=== PATIENT | female | born 1990 | race Caucasian/White ===

== ENCOUNTER → 2021-10-01 07:59 | Outpatient (BNVA) | payer MEDICAID, SELFPAY | PROVIDERS: Visit Provider Nurse Practitioner Women's Health | DX: N92.6 Irregular menstruation, unspecified (principal) | CPT/HCPCS: 81025 ==

== ENCOUNTER → 2021-10-11 13:25 | Outpatient (BNVA) | payer MEDICAID, SELFPAY | PROVIDERS: Visit Provider Obstetrics & Gynecology | DX: Z34.90 Encounter for supervision of normal pregnancy, unspecified, unspecified trimester (principal) | CPT/HCPCS: 80307; 81000; 87086 ==

== ENCOUNTER → 2021-10-26 09:11 | Outpatient (BNVA) | payer MEDICAID, SELFPAY | PROVIDERS: Visit Provider Obstetrics & Gynecology | DX: O09.90 Supervision of high risk pregnancy, unspecified, unspecified trimester (principal); Z3A.00 Weeks of gestation of pregnancy not specified | CPT/HCPCS: 80053; 80307; 81000; 82570; 84156; 84443; 85027; 86592; 86762; 86803; 86850; 86900; 87086; 87340; 87491; 87591; 87624; 87806 ==

== ENCOUNTER → 2021-10-27 08:16 | Outpatient (BNVA) | payer MEDICAID, SELFPAY | PROVIDERS: Visit Provider Obstetrics & Gynecology | DX: I10 Essential (primary) hypertension (principal); Z87.59 Personal history of other complications of pregnancy, childbirth and the puerperium | CPT/HCPCS: 84550 ==

== ENCOUNTER 2021-11-10 11:56 | Outpatient (CLI) | payer MEDICAID, SELFPAY ==
--- NOTE | 2021-11-10 12:15 | USCV_ITS ---
Jessica Garcia Age: 31 Gender: F : 1990 Exam Date: 11/10/2021 12:21 Ordering Phys: Mamadou Reid MD Technologist: ANGELA [place] [facility] [place]: Essential hypertension BP: 128 / 84 HR: 76 Rhythm: Sinus Technical Quality: Adequate MEASUREMENTS (Male / Female) Normal Values 2D ECHO LV Diastolic Diameter PLAX 3.5 cm 4.2 - 5.9 / 3.9 - 5.3 cm LV Systolic Diameter PLAX 2.6 cm IVS Diastolic Thickness 1.0 cm 0.6 - 1.0 / 0.6 - 0.9 cm IVS Systolic Thickness 1.5 cm LVPW Diastolic Thickness 1.2 cm 0.6 - 1.0 / 0.6 - 0.9 cm LVPW Systolic Thickness 1.6 cm RV Chamber Size 1.8 cm LVOT Diameter 2.0 cm LV Ejection Fraction 2D Teich 53.7 % LV Ejection Fraction MOD 2C 71.7 % LV Ejection Fraction 2C AL 73.1 % LA Diameter 2.4 cm LA Width 3.4 cm LA Height 3.5 cm RA Width 2.2 cm RA Height 3.1 cm Aorta at Sinotubular Diameter 2.5 cm IVC Diameter 2.1 cm M-MODE Aortic Annulus Diameter 2.6 cm LA Ao Ratio MM 0.8 MV E Point Septal Separation 0.3 cm DOPPLER AV Peak Velocity 124.0 cm/s LVOT Peak Velocity 97.0 cm/s AV Area Cont Eq vti 2.5 cm squared AV Area Cont Eq pk 2.6 cm squared MV Area PHT 9.2 cm squared Mitral E to A Ratio 1.5 MV E' Velocity 62.0 cm/s Mitral E to MV E' Ratio 8.1 Mitral E to LV E' Lateral Ratio 7.8 Mitral E to LV E' Septal Ratio 8.3 TR Peak Velocity 145.0 cm/s TR Peak Gradient 8.4 mmHg Right Atrial Pressure 3.0 mmHg Pulmonary Artery Systolic Pressu 11.4 mmHg PV Peak Velocity 118.0 cm/s RV Acceleration Time 0.2 s RV Ejection Time 0.3 s RV AcT/ET 0.6 FINDINGS Left Ventricle Normal left ventricular size. LV systolic function is normal with EF of 55-60%. No regional wall motion abnormalities. Diastolic function is normal Right Ventricle The right ventricle is normal in size and function. Right Atrium The right atrium is normal in size. Left Atrium The left atrium is normal in size. Mitral Valve Mild mitral annular calcification without significant stenosis or prolapse. There is trace mitral regurgitation. Aortic Valve Structurally normal aortic valve without significant sclerosis or stenosis. There is no aortic regurgitation. Tricuspid Valve Structurally normal tricuspid valve without significant stenosis. Mild tricuspid regurgitation. Insufficient TR jet to calculate RVSP. Pulmonic Valve Not well visualized. Mild pulmonic regurgitation Pericardium Normal pericardium without effusion. Aorta Normal ascending aorta dimension. IVC CONCLUSIONS LV systolic function is normal with EF of 55-60% Diastolic function is normal Trace mitral regurgitation Mild tricuspid regurgitation Mild pulmonic regurgitation No comparison studies are available Richard Bertrand MD (Electronically Signed) Final Date: 20 Nov 2021 22:36 S
--- NOTE | 2021-11-10 13:20 | ECG_ITS ---
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 Measurements Intervals [place] Rate: 71 P: 52 AR: 139 QRS: 80 QRSD: 86 T: 35 QT: 406 QTc: 441 Interpretive Statements SINUS RHYTHM No previous ECG available for comparison Electronically Signed On 11-10-2021 20:27:29 CDT by Ting Rodriguez M.D. [id number]
== END 2021-11-10 11:57 | disposition home or self-care (01) ==
LOC: RAD 11:56
PROVIDERS: Visit Provider Obstetrics & Gynecology
DX: I10 Essential (primary) hypertension (principal)
CPT/HCPCS: 93005; 93306

== ENCOUNTER → 2022-01-25 10:44 | Outpatient (BNVA) | payer MEDICAID, SELFPAY | PROVIDERS: Visit Provider Obstetrics & Gynecology | DX: O09.90 Supervision of high risk pregnancy, unspecified, unspecified trimester (principal); Z3A.23 23 weeks gestation of pregnancy | CPT/HCPCS: 76816; 84315; 85027 ==

== ENCOUNTER → 2022-02-25 14:03 | Outpatient (BNVA) | payer MEDICAID, SELFPAY | PROVIDERS: Visit Provider Obstetrics & Gynecology | DX: O99.340 Other mental disorders complicating pregnancy, unspecified trimester (principal); F32.A Depression, unspecified; F41.8 Other specified anxiety disorders; I10 Essential (primary) hypertension; K21.9 Gastro-esophageal reflux disease without esophagitis; K59.00 Constipation, unspecified; O26.899 Other specified pregnancy related conditions, unspecified trimester; O99.891 Other specified diseases and conditions complicating pregnancy; Z67.91 Unspecified blood type, Rh negative; Z86.59 Personal history of other mental and behavioral disorders; Z87.59 Personal history of other complications of pregnancy, childbirth and the puerperium | CPT/HCPCS: 76816; 82950; 84315; 85025; 86850 ==

== ENCOUNTER → 2022-03-21 13:06 | Outpatient (BNVA) | payer MEDICAID, SELFPAY | PROVIDERS: Visit Provider Obstetrics & Gynecology | DX: O09.90 Supervision of high risk pregnancy, unspecified, unspecified trimester (principal); Z3A.00 Weeks of gestation of pregnancy not specified | CPT/HCPCS: 76815; 76819; 76820; 84315 ==

== ENCOUNTER → 2022-03-25 10:09 | Outpatient (BNVA) | payer MEDICAID, SELFPAY | PROVIDERS: Visit Provider Obstetrics & Gynecology | DX: O16.9 Unspecified maternal hypertension, unspecified trimester (principal) | CPT/HCPCS: 76819 ==

== ENCOUNTER → 2022-03-28 11:13 | Outpatient (BNVA) | payer MEDICAID, SELFPAY | PROVIDERS: Visit Provider Obstetrics & Gynecology | DX: Z87.59 Personal history of other complications of pregnancy, childbirth and the puerperium (principal); I10 Essential (primary) hypertension; O09.90 Supervision of high risk pregnancy, unspecified, unspecified trimester | CPT/HCPCS: 76819 ==

== ENCOUNTER → 2022-04-01 08:59 | Outpatient (BNVA) | payer MEDICAID, SELFPAY | PROVIDERS: Visit Provider Obstetrics & Gynecology | DX: O36.8390 Maternal care for abnormalities of the fetal heart rate or rhythm, unspecified trimester, not applicable or unspecified (principal); Z3A.00 Weeks of gestation of pregnancy not specified | CPT/HCPCS: 76819; 76820 ==

== ENCOUNTER → 2022-04-05 15:00 | Outpatient (BNVA) | payer MEDICAID, SELFPAY | PROVIDERS: Visit Provider Obstetrics & Gynecology | DX: Z34.90 Encounter for supervision of normal pregnancy, unspecified, unspecified trimester (principal); Z3A.00 Weeks of gestation of pregnancy not specified | CPT/HCPCS: 76819; 84315 ==

== ENCOUNTER → 2022-04-08 13:39 | Outpatient (BNVA) | payer MEDICAID, SELFPAY | PROVIDERS: Visit Provider Obstetrics & Gynecology | DX: Z34.93 Encounter for supervision of normal pregnancy, unspecified, third trimester (principal); Z3A.32 32 weeks gestation of pregnancy | CPT/HCPCS: 76816 ==

== ENCOUNTER → 2022-04-11 13:38 | Outpatient (BNVA) | payer MEDICAID, SELFPAY | PROVIDERS: Visit Provider Obstetrics & Gynecology | DX: O36.5990 Maternal care for other known or suspected poor fetal growth, unspecified trimester, not applicable or unspecified (principal); Z3A.00 Weeks of gestation of pregnancy not specified | CPT/HCPCS: 76819 ==

== ENCOUNTER → 2022-04-14 11:36 | Outpatient (BNVA) | payer MEDICAID, SELFPAY | PROVIDERS: Visit Provider Obstetrics & Gynecology | DX: O16.9 Unspecified maternal hypertension, unspecified trimester (principal); Z3A.00 Weeks of gestation of pregnancy not specified | CPT/HCPCS: 76819; 76820 ==

== ENCOUNTER 2022-04-14 12:20 | Outpatient (CLI) | payer MEDICAID, SELFPAY ==
[2022-04-14 12:20] VITALS: BMI 34.0
[2022-04-14 12:51] VITALS: BP 172/95; PULSE 65
[2022-04-14 13:22] VITALS: BP 141/81; PULSE 62
[2022-04-14 13:34] LABS: Basophils % 0.1 %; Eosinophils % 0.2 %; Hematocrit 34.7 % (37.0-47.0); Hemoglobin 12.1 g/dL (11.5-15.3); Lymphocytes # 1.8 10^3/uL (0.8-4.8); Lymphocytes % 19.7 %; Mean Corpuscular HGB Conc 34.9 g/dL (30.0-36.0); Mean Platelet Volume 10.4 fL (7.4-10.4); Monocytes # 0.7 10^3/uL (0.2-0.9); Monocytes % 7.8 %; Neutrophils # 6.63 10^3/uL (1.8-7.7); Neutrophils % 71.7 %; Nucleated Red Blood Cells % 0 %; Platelet Count 203 10^3/cmm (130-400); Red Cell Distribution Width 12.1 % (12.1-15.1); White Blood Count 9.3 10^3/uL (4.0-10.0)
[2022-04-14 13:36] VITALS: BP 132/78; PULSE 60
[2022-04-14 13:50] LABS: Alanine Aminotransferase 35 U/L (0-33); Albumin Level 3.1 g/dL (3.5-5.2); Alkaline Phosphatase 146 U/L (35-105); Aspartate Amino Transferase 25 U/L (0-32); Blood Urea Nitrogen 14 mg/dL (6-20); Calcium 9.2 mg/dL (8.5-10.5); Carbon Dioxide 21 mmol/L (22-29); Chloride 102 mmol/L (98-107); Globulin 3.1 g/dL (1.3-4.6); Glomerular Filtration Rate 96.4 mL/min (90-130); Glucose 89 mg/dL (65-115); Osmolality Calculated 276 mOsm/kg (285-295); Sodium 133 mmol/L (136-145); Total Bilirubin 0.2 mg/dL (0.15-1.2); Total Protein 6.2 g/dL (6.6-8.7); Uric Acid 7.5 mg/dL (2.4-5.7)
[2022-04-14 13:51] VITALS: BP 147/86; PULSE 64
[2022-04-14 14:01] LABS: Urine Creatinine 42 mg/dL (28-217); Urine Protein Random 10 mg/dL
[2022-04-14 14:02] LABS: UPRO/UCREAT Ratio 0.24 mg/mg CR
[2022-04-14 14:05] LABS: Add Urine Culture? No; Bacteria Urine TRACE /hpf; Bilirubin Urine Neg (Negative); Blood Urine Neg (Negative); Glucose Urine UA Norm (Normal); Ketones Urine Negative (Negative); Leukocyte Esterase Urine Negative (Negative); Nitrate Urine Negative (Negative); Protein Urine Neg (Negative); RBC Urine 0-4 /hpf (0-2); Squamous Epithelial Cell Urine 0-4 /hpf (0-5); Urine Appearance Clear (CLEAR); Urine Color Yellow (Yellow); Urobilinogen Urine Norm (Negative); WBC Urine 0-4 /hpf (0-5); pH Urine 7 (5-7)
[2022-04-14 14:07] VITALS: BP 135/76; PULSE 63
== END 2022-04-14 14:40 | disposition home or self-care (01) ==
LOC: OPOB 12:31 → OBGYN 12:33
PROVIDERS: Visit Provider Obstetrics & Gynecology
DX: O26.899 Other specified pregnancy related conditions, unspecified trimester (principal); Z3A.00 Weeks of gestation of pregnancy not specified
CPT/HCPCS: 36415; 59025; 80053; 81001; 82570; 84156; 84550; 85025; 99211

== ENCOUNTER 2022-04-15 14:41 | Outpatient (CLI) | payer MEDICAID, SELFPAY ==
[2022-04-15 15:22] LABS: Total Volume, Urine 2550 mL
[2022-04-15 20:56] LABS: Urine Total Protein 12.5 mg/dL (0-150); Urine Total Protein 24 Hour 318.8 mg/24hr (0-150)
== END 2022-04-15 14:42 | disposition home or self-care (01) ==
LOC: LAB 14:52
PROVIDERS: Visit Provider Obstetrics & Gynecology
DX: I10 Essential (primary) hypertension (principal)
CPT/HCPCS: 84156; 87081

== ENCOUNTER → 2022-04-18 09:07 | Outpatient (BNVA) | payer MEDICAID, SELFPAY | PROVIDERS: Visit Provider Obstetrics & Gynecology | DX: O16.9 Unspecified maternal hypertension, unspecified trimester (principal); Z3A.00 Weeks of gestation of pregnancy not specified | CPT/HCPCS: 76816; 76819 ==

== ENCOUNTER 2022-04-18 13:55 | Inpatient (IN) | payer MEDICAID, SELFPAY ==
[2022-04-18] VITALS (66 sets, daily range): BP systolic 125–254; BP diastolic 71–128; PULSE 56–79; RESP 14–16; TEMP 36.3–36.7; O2SAT 97–99; BMI 34.2
[2022-04-18 14:52] LABS: Basophils % 0.1 %; Eosinophils % 0.3 %; Hemoglobin 11.8 g/dL (11.5-15.3); Lymphocytes # 1.9 10^3/uL (0.8-4.8); Lymphocytes % 19.2 %; Mean Corpuscular HGB Conc 34.7 g/dL (30.0-36.0); Mean Corpuscular Hemoglobin 30.8 pg (28.0-34.0); Mean Corpuscular Volume 88.8 fl (81-99); Mean Platelet Volume 10.8 fL (7.4-10.4); Monocytes # 0.7 10^3/uL (0.2-0.9); Monocytes % 6.7 %; Neutrophils % 73.1 %; Nucleated Red Blood Cells % 0 %; Platelet Count 220 10^3/cmm (130-400); Red Blood Count 3.83 10^6/uL (4.1-5.3); Red Cell Distribution Width 12.4 % (12.1-15.1)
[2022-04-18] MEDS: miSOPROStol 100 mcg tablet 25 MCG VAGINAL ×3 (14:57→23:53)
[2022-04-18 15:07] LABS: Alanine Aminotransferase 34 U/L (0-33); Albumin Level 3.1 g/dL (3.5-5.2); Alkaline Phosphatase 153 U/L (35-105); Anion Gap 17.9 (5-19); Aspartate Amino Transferase 27 U/L (0-32); Blood Urea Nitrogen 16 mg/dL (6-20); Carbon Dioxide 20 mmol/L (22-29); Chloride 105 mmol/L (98-107); Globulin 3.3 g/dL (1.3-4.6); Glomerular Filtration Rate 82.6 mL/min (90-130); Glucose 108 mg/dL (65-115); Osmolality Calculated 290 mOsm/kg (285-295); Potassium 3.9 mmol/L (3.5-5.1); Sodium 139 mmol/L (136-145); Total Bilirubin 0.2 mg/dL (0.15-1.2); Total Protein 6.4 g/dL (6.6-8.7); Uric Acid 8.2 mg/dL (2.4-5.7)
[2022-04-18] MEDS: labetalol 5 mg/mL SDV 20mL 20 MG IVP (18:03)
[2022-04-18] MEDS: dextrose 5%-lactated ringers 1,000 ML 75 ML IV (18:11)
[2022-04-18] MEDS: magnesium sulfate premix 4 GM/100 ML PREMIX IV (18:18)
[2022-04-18] MEDS: magnesium sulfate premix 20 GM/500 ML BAG IV (18:18)
--- NOTE | 2022-04-18 18:19 | W.PM.OPSUD ---
Surgery/Procedure H&P Update DATE OF PROCEDURE: April 19, 2022 DATE H&P PERFORMED: 04/18/22 H&P UPDATE INFORMATION: I have reviewed H&P completed within last 30 days, I have examined patient prior to procedure and No changes to prior documentation
[2022-04-19] VITALS (109 sets, daily range): BP systolic 116–174; BP diastolic 60–108; PULSE 57–83; RESP 14–17; TEMP 36.5–36.8
[2022-04-19 00:31] LABS: Magnesium Level (OB Only) 4.9 mg/dL (5.0-7.5)
[2022-04-19] MEDS: magnesium sulfate premix 20 GM/500 ML BAG IV ×2 (04:04→14:09)
[2022-04-19] MEDS: miSOPROStol 100 mcg tablet 25 MCG VAGINAL (05:20)
[2022-04-19] MEDS: dextrose 5%-lactated ringers 1,000 ML 75 ML IV (06:11)
[2022-04-19 06:30] LABS: Magnesium Level (OB Only) 6.1 mg/dL (5.0-7.5)
[2022-04-19] MEDS: acetaminophen 325 mg Tablet 650 MG PO ×2 (07:24→13:07)
--- NOTE | 2022-04-19 07:54 | PM.PN ---
Subjective Subjective: Mrs. Garcia 31-year-old female with an estimated stational age at 36 weeks 2 days with chronic hypertension superimposed preeclampsia Vitals/I&O/Wt Last Vital Signs Temp 97.7 F 04/19/22 04:13 Pulse 65 04/19/22 16:18 Resp 14 04/19/22 05:59 BP 161/98 04/19/22 16:18 Pulse Ox 99 04/18/22 19:00 O2 Del Method 04/19/22 10:31 04/19/22 04/19/22 04/19/22 06:59 14:59 22:59 Intake Total 1400 / 1500 539.449 / 539.449 Output Total 2650 / 4350 1400 / 1400 Balance -1250 / -2850 -860.551 / -860.551 Weight last 48 hrs Weight 96.162 kg Physical Exam Narrative: GA: Alert and oriented ?3. Lungs: Clear to auscultation bilaterally. Heart: Regular rhythm and rate. Abdomen: Gravid, full the height equals dates, nontender. TELEVISION SPECIALIST: SVE; dilation: 4 cm, effacement: 50%, station: -4, presentation: vx, membranes: im. Extremities: no edema, no cyanosis, no calves pain. heart tracing: Basal rate: 140's bpm, Variability: moderate, Accelerations: present, Decelerations: absent, Contraction: q4-5min. Urinary Catheter Management: De Oliveira Latex: Cath Placed During This Visit: yes Reason for Continuing Indwelling Catheter: Accurate Measurement of Urinary Output in Critically Ill Patients Urinary Catheter Date of Insertion: 04/18/22 Urinary Catheter Time of Insertion: 18:31 Data : 04/18/22 14:20 04/18/22 14:20 A&P Assessment and plan (1) Chronic hypertension with superimposed preeclampsia: Mrs. Garcia 31-year-old female with an estimated stational age at 36 weeks 2 days with chronic hypertension superimposed preeclampsia admitted for induction. Received misoprostol for cervical ripening overnight. Anticipate vaginal delivery. We will start with oxytocin at a moderate rate per protocol. scalp stimulation within normal limits. heart tracing category 1 Attestations Medical Necessity Statement*: My professional opinion per admitting diagnosis Coding Level of Care Code Acute General Administrator for Chg Fwd Diagnoses Chronic hypertension with superimposed preeclampsia O11.9
[2022-04-19 12:05] LABS: Magnesium Level (OB Only) 6.5 mg/dL (5.0-7.5)
[2022-04-19] MEDS: ondansetron 2 mg/ML SDV 2 mL 4 MG IVP (14:56)
[2022-04-19] MEDS: alum-mag-hydroxide-sime 30 mL UDC PO (16:22)
[2022-04-19] MEDS: lactated ringers 1,000 ML 999 ML IV (17:00)
[2022-04-19] MEDS: lidocaine 2% INJ 20 mL INJECTION (18:00)
--- NOTE | 2022-04-19 18:22 | P.PCNOB_ITS ---
Delivery Note: Date of delivery: April 19, 2022 Pre-delivery diagnoses: at 36+2 weeks. Chronic hypertension. Chronic hypertension superimposed preeclampsia Post-delivery diagnoses: Same as above Procedure: Spontaneous vaginal delivery Delivering Physician: Stanley Diana MD Estimated blood loss (mL): 300 Delivery: The patient was noted to be complete and pushing, so was placed in the dorsal lithotomy position, prepped and draped in the usual sterile fashion for a vaginal delivery. Pt. Noted to have epidural anesthesia. At 1808 the patient delivered a viable at 36 weeks female infant weighing 2275g with scores of 8 and 9 at one and five minutes, respectively. The vertex was delivered spontaneously over intact perineum. The patient was asked to push and the head delivered spontaneously in the TRACY position, over an intact perineum. A nuchal cord was checked and none noted. The anterior shoulder delivered easily and the posterior shoulder followed. The remainder of the was easily delivered and the oropharynx and nasopharynx was bulb suctioned. The was noted to have spontaneous cry and spontaneous movement of all four extremities. The cord was clamped x 2 and cut and noted to have 2 arteries and one vein. The infant was passed to the mother's abdomen where nursing personnel and knife setter assembler were in attendance. Cord blood sample was then obtained. The placenta delivered intact spontaneously and the uterus was explored. 20 units of Pitocin was placed in the IV bag to firm the uterus. Examination of the cervix and vaginal vault did not reveal any lacerations. A vaginal pack was then placed. Examination of the perineum showed no laceration. The vaginal pack was then removed. The patient tolerated this procedure well, and recovered in L&D with her infant in their LDR room. All sponge and needle counts were correct. History History History 6 Term 2 1 Miscarriages/Ectopic 2 Living Children 3 A&P Assessment and plan (1) Chronic hypertension with superimposed preeclampsia: (2) Rh negative, antepartum: Coding Level of Care Code Acute Retail Gift Card Merchandising for Chg Fwd Diagnoses Chronic hypertension with superimposed preeclampsia O11.9 Rh negative, antepartum O26.899; Z67.91
[2022-04-19 20:42] LABS: Magnesium Level (OB Only) 6.3 mg/dL (5.0-7.5)
[2022-04-20] VITALS (22 sets, daily range): BP systolic 124–158; BP diastolic 76–94; PULSE 59–78; RESP 16; TEMP 36.2–36.9
[2022-04-20] MEDS: magnesium sulfate premix 20 GM/500 ML BAG IV (00:12)
[2022-04-20] MEDS: dextrose 5%-lactated ringers 1,000 ML 75 ML IV (00:13)
[2022-04-20 03:00] LABS: Magnesium Level (OB Only) 6.9 mg/dL (5.0-7.5)
[2022-04-20] MEDS: alum-mag-hydroxide-sime 30 mL UDC PO (05:07)
[2022-04-20] MEDS: acetaminophen 325 mg Tablet 650 MG PO (05:07)
[2022-04-20] MEDS: benzocaine-menthol 78 gm Canister 1 SPRAY TOPICAL (05:08)
[2022-04-20] MEDS: lanolin oint 7 gm 1 APPLIC TOPICAL (05:08)
[2022-04-20 06:36] LABS: Hematocrit 29.3 % (37.0-47.0); Hemoglobin 10.3 g/dL (11.5-15.3); Mean Corpuscular HGB Conc 35.2 g/dL (30.0-36.0); Mean Corpuscular Hemoglobin 31.4 pg (28.0-34.0); Mean Corpuscular Volume 89.3 fl (81-99); Mean Platelet Volume 10.6 fL (7.4-10.4); Platelet Count 170 10^3/cmm (130-400); Red Blood Count 3.28 10^6/uL (4.1-5.3); Red Cell Distribution Width 12.4 % (12.1-15.1)
--- NOTE | 2022-04-20 07:32 | PC.NURSE ---
Patient notified this RN, IBCLC that was ready to breastfeed. Patient positioned in cross cradle independently, infant latched with mouth wide. No large jaw movements were noted at this time. Discussed with patient how latch felt. Infant came off the breast and started crying, patient attempted to continue to latch infant, suggested that she bring infant to her chest to comfort and calm. Discussed pacifier use, recommendation to delay use until is well established and not to use pacifier to delay feedings. Discussed why infant was latching to pacifier and struggling to latch to the breast. Recommended that patient attempt latching again in 30-45 minutes. Patient and skin to skin
--- NOTE | 2022-04-20 09:22 | PM.PN ---
Subjective Subjective: The patient delivered last night around 1800. She has been NPO and mag sulfate continues to infuse. Vitals/I&O/Wt Last Vital Signs Temp 97.9 F 04/20/22 06:15 Pulse 67 04/20/22 07:57 Resp 17 04/19/22 18:26 BP 142/88 04/20/22 07:57 Pulse Ox 99 04/18/22 19:00 O2 Del Method 04/19/22 18:26 04/19/22 04/20/22 04/20/22 22:59 06:59 14:59 Intake Total 1000 / 1539.449 500 / 2039.449 Output Total 2385 / 3785 1525 / 5310 585 / 585 Balance -1385 / -2245.551 -1025 / -3270.551 -585 / -585 Weight last 48 hrs Weight 212 lb Physical Exam Narrative: The patient is in good spirits. She is very hungry. Otherwise, she has no concerns. Const: COMMON NORMALS: no acute distress, average body habitus, patient oriented x3, no limitations, healthy appearing, alert and well nourished GENERAL APPEARANCE: cooperative, comfortable, well kempt and well developed ORIENTATION/CONSCIOUSNESS: Yes awake, Yes oriented to person, Yes oriented to place and Yes oriented to time Resp: COMMON NORMALS: normal respiratory effort EFFORT & INSPECTION: Yes able to speak in complete sentences GI: COMMON NORMALS: Soft to palpation and non-tender PALPATION: Yes Soft to palpation Extremity: COMMON NORMALS: no calf tenderness Neuro: COMMON NORMALS: patient oriented x3 SENSORIUM/ORIENTATION: Yes alert, Yes oriented to person, Yes oriented to place and Yes oriented to time Psych: APPEARANCE: Yes well kempt Urinary Catheter Management: De Oliveira Latex: Cath Placed During This Visit: yes, but has since been removed by the nurse Reason for Continuing Indwelling Catheter: Accurate Measurement of Urinary Output in Critically Ill Patients Urinary Catheter Date of Insertion: 04/19/22 Urinary Catheter Time of Insertion: 20:24 Date Urinary Catheter Removed: 04/19/22 Time Urinary Catheter Discontinued: 18:00 Data : 04/20/22 06:22 04/18/22 14:20 A&P Assessment and plan (1) Chronic hypertension with superimposed preeclampsia: continue mag sulfate for 24 hours patient may eat continue to monitor closely blood pressures still remain slightly elevated. [facility] Medical Necessity Statement*: The patient has already been here two midnights. Anticipate discharge possible tomorrow Coding Level of Care Code Acute Principal Network Architect for [employer] Spencer Diagnoses Chronic hypertension with superimposed preeclampsia O11.9
[2022-04-20 10:03] LABS: Magnesium Level (OB Only) 7.3 mg/dL (5.0-7.5)
[2022-04-20] MEDS: prenatal vitamin Capsule 1 CAP PO (10:20)
[2022-04-20] MEDS: ibuprofen 800 mg tablet PO ×3 (10:20→20:19)
[2022-04-20] MEDS: docusate sodium 100 mg Capsule PO ×2 (10:21→20:19)
--- NOTE | 2022-04-20 17:17 | PM.PN ---
Subjective Subjective: Mrs. Garcia 31 y/o with an estimated stational age at 36 weeks 2 days admitted for induction due to chronic hypertension and superimposed preeclampsia. Vitals/I&O/Wt Last Vital Signs Temp 98.1 F 04/21/22 09:50 Pulse 62 04/21/22 10:51 Resp 16 04/20/22 22:15 BP 152/81 04/21/22 10:51 Pulse Ox 99 04/18/22 19:00 O2 Del Method 04/19/22 18:26 04/20/22 04/21/22 04/21/22 22:59 06:59 14:59 Intake Total 2464.551 / 2954.551 1999 495.55 Output Total 900 / 2985 Balance 1564.551 / -30.449 1999 Physical Exam Narrative: GA; alert and oriented x 3 HEENT: normal Breasts: engorged Nipples - skin intact Lungs; clear to auscultation Heart: regular rhythm, no murmurs. Abd: Appropriately tender. BS+. Uterine fundus below umbilicus. No Fundal Tenderness. Perineum: normal lochia. Extremities: no edema, no cyanosis, no tenderness. Urinary Catheter Management: De Oliveira Latex: Cath Placed During This Visit: yes, but has since been removed by the nurse Reason for Continuing Indwelling Catheter: Decision to DC Catheter Urinary Catheter Date of Insertion: 04/19/22 Urinary Catheter Time of Insertion: 20:24 Date Urinary Catheter Removed: 04/20/22 Time Urinary Catheter Discontinued: 11:10 Data : 04/20/22 06:22 04/18/22 14:20 A&P Assessment and plan (1) Chronic hypertension with superimposed preeclampsia: Mrs. Howard 31-year-old female is status post spontaneous vaginal delivery day 1. Complicated with chronic hypertension superimposed preeclampsia. Admitted for induction she progressed to having a spontaneous vaginal delivery without complication. Blood pressure within normal limits. She had diuresis normal. (2) delivery (maternal condition): Attestations Medical Necessity Statement*: In my professional opinion per admitting diagnosis. Coding Level of Care Code Acute Clothing And Textiles Teacher for [facility] Fwd Diagnoses Chronic hypertension with superimposed preeclampsia O11.9 delivery (maternal condition) O60.10X0
[2022-04-21] VITALS (14 sets, daily range): BP systolic 123–187; BP diastolic 64–115; PULSE 58–97; RESP 16; TEMP 36.1–36.7
[2022-04-21] MEDS: citalopram 20 mg Tablet 10 MG PO (09:54)
[2022-04-21] MEDS: prenatal vitamin Capsule 1 CAP PO (09:54)
[2022-04-21] MEDS: ibuprofen 800 mg tablet PO ×2 (09:54→16:22)
--- NOTE | 2022-04-21 12:27 | P.DS_ITS ---
Discharge Providers AIRFRAME TECHNICIAN Date of Admission: 04/18/22 13:55 Date of Discharge: 04/21/22 Attending Provider at Admission: Stanley Diana MD Attending Provider at Discharge: Stanley Diana MD Primary AIRFRAME TECHNICIAN: Stanley Diana MD Diagnoses at Discharge Discharge Diagnosis (1) Chronic hypertension with superimposed preeclampsia: Status: Acute (2) delivery (maternal condition): Status: Acute Reason for Visit Reason for Visit: Induction Hospital Course Hospital Course Mrs. Lazo 31-year-old female with a lateral gestational age at 36 weeks +1-day admitted for induction due to chronic hypertension superimposed preeclampsia and IUGR. Misoprostol was administered her for cervical ripening and was then followed by oxytocin for labor augmentation, and AROM. She had a rapid progression of labor after AROM from a 5 cm in dilation to fully dilated and having a spontaneous vaginal delivery in less than an hour. Magnesium sulfate was given for seizure prophylaxis until she fully diureses. Blood pressure under control, tolerating diet well, and ambulating without difficulty. Information Peripartum Data: Infant Delivery Method: Vaginal Physical Exam Narrative: GA; alert and oriented x 3 HEENT: normal Breasts: engorged Lungs; clear to auscultation Heart: regular rhythm, no murmurs. Abd: Appropriately tender. BS+. Uterine fundus below umbilicus. No Fundal Tenderness. Perineum: normal lochia. Extremities: no edema, no cyanosis, no tenderness. Urinary Catheter Management: De Oliveira Latex: Cath Placed During This Visit: yes, but has since been removed by the nurse Reason for Continuing Indwelling Catheter: Decision to DC Catheter Urinary Catheter Date of Insertion: 04/19/22 Urinary Catheter Time of Insertion: 20:24 Date Urinary Catheter Removed: 04/20/22 Time Urinary Catheter Discontinued: 11:10 History History History 6 Term 2 1 Miscarriages/Ectopic 2 Living Children 3 Discharge Data Studies Completed and Pending Laboratory Results WBC 12.0 10^3/uL (4.0-10.0) H 04/20/22 06:22 RBC 3.28 10^6/uL (4.1-5.3) L 04/20/22 06:22 Hgb 10.3 g/dL (11.5-15.3) L 04/20/22 06:22 Hct 29.3 % (37.0-47.0) L 04/20/22 06:22 MCV 89.3 fl (81-99) 04/20/22 06:22 MCH 31.4 pg (28.0-34.0) 04/20/22 06: MCHC 35.2 g/dL (30.0-36.0) 04/20/22 06: RDW 12.4 % (12.1-15.1) 04/20/22 06:22 Plt Count 170 10^3/cmm (130-400) 04/20/22 06:22 MPV 10.6 fL (7.4-10.4) H 04/20/22 06:22 Neut % (Auto) 73.1 % 04/18/22 14:20 Lymph % (Auto) 19.2 % 04/18/22 14:20 Forest % (Auto) 6.7 % 04/18/22 14:20 Eos % (Auto) 0.3 % 04/18/22 14:20 Baso % (Auto) 0.1 % 04/18/22 14:20 Neut # (Auto) 7.30 10^3/uL (1.8-7.7) 04/18/22 14:20 Lymph # (Auto) 1.9 10^3/uL (0.8-4.8) 04/18/22 14:20 Forest # (Auto) 0.7 10^3/uL (0.2-0.9) 04/18/22 14:20 Eos # (Auto) 0.0 10^3/uL (0.0-0.8) 04/18/22 14:20 Baso # (Auto) 0.0 10^3/uL (0.0-0.1) 04/18/22 14:20 Nucleated RBC % (auto) 0 % 04/18/22 14:20 Nucleated RBCs # 0.0 /100WBC 04/18/22 14:20 Sodium 139 mmol/L (136-145) 04/18/22 14:20 Potassium 3.9 mmol/L (3.5-5.1) 04/18/22 14:20 Chloride 105 mmol/L (98-107) 04/18/22 14:20 Carbon Dioxide 20 mmol/L (22-29) L 04/18/22 14:20 Anion Gap 17.9 (5-19) 04/18/22 14:20 BUN 16 mg/dL (6-20) 04/18/22 14:20 Creatinine 0.8 mg/dL (0.5-0.9) 04/18/22 14:20 GFR Calculation 82.6 mL/min (90-130) L 04/18/22 14:20 Glucose 108 mg/dL (65-115) 04/18/22 14:20 Calculated Osmolality 290 mOsm/kg (285-295) 04/18/22 14:20 Uric Acid 8.2 mg/dL (2.4-5.7) H 04/18/22 14:20 Calcium 9.0 mg/dL (8.5-10.5) 04/18/22 14:20 Magnesium 7.3 mg/dL (5.0-7.5) 04/20/22 08:17 Total Bilirubin 0.2 mg/dL (0.15-1.2) 04/18/22 14:20 AST 27 U/L (0-32) 04/18/22 14:20 ALT 34 U/L (0-33) H 04/18/22 14:20 Alkaline Phosphatase 153 U/L (35-105) H 04/18/22 14:20 Total Protein 6.4 g/dL (6.6-8.7) L 04/18/22 14:20 Albumin 3.1 g/dL (3.5-5.2) L 04/18/22 14:20 Globulin 3.3 g/dL (1.3-4.6) 04/18/22 14:20 Blood Type B Negative 04/18/22 14:20 Rho(D) Type Negative 04/18/22 14:20 Antibody Screen Positive 04/18/22 14:20 Antibody Identification Anti-D 04/18/22 14:20 Screen Negative (Negative) 04/20/22 06:22 Vitals Last Vital Signs Temp 98.1 F 04/21/22 09:50 Pulse 62 04/21/22 10:51 Resp 16 04/20/22 22:15 BP 152/81 04/21/22 10:51 Pulse Ox 99 04/18/22 19:00 O2 Del Method 04/19/22 18:26 Discharge Plan Discharge Patient Disposition: Home Condition: Stable Prescriptions: New acetaminophen 325 mg capsule 325 mg PO Q4H PRN (Reason: fever or pain) Qty: 60 0RF docusate sodium [Colace] 100 mg capsule 100 mg PO BID Qty: 60 0RF ferrous sulfate [Iron (ferrous sulfate)] 325 mg (65 mg iron) tablet 325 mg PO BID Qty: 60 0RF ibuprofen 800 mg tablet 800 mg PO TID PRN (Reason: pain) Qty: 60 0RF Continued aspirin 81 mg tablet,delayed release (DR/EC) 81 mg PO DAILY Qty: 90 2RF docusate sodium [Colace] 100 mg capsule 100 mg PO DAILY prenat.vits,sy,akn-kdpx-kjxpa Tablet 1 tab PO DAILY omeprazole 20 mg capsule,delayed release(DR/EC) 20 mg PO DAILY PRN (Reason: Acid Reflux) escitalopram oxalate 10 mg tablet 10 mg PO DAILY Qty: 30 5RF polyethylene glycol 3350 [Miralax] 17 gram/dose powder 4 g PO BID PRN (Reason: constipation) Qty: 119 0RF propranolol 10 mg tablet 10 mg PO DAILY Qty: 10 0RF Discharge Orders: Discharge Order (Routine); Ordered 04/21/22 Ordered By: Stnaley Diana Referrals: Stanley Diana MD [Physician] - Discharge Diet: Advance as tolerated Discharge Activity: Limit activity as instructed Patient Instructions: Depression (DC), Bleeding (DC), Preeclampsia and Eclampsia After Delivery (GEN), Hemorrhage (DC), OB Discharge Report, OB Food/Drug Interaction Guide, OB Care at Home, Opioid Safety, OB Home Care, OB Vaginal Deliveries - [facility] Activity Restrictions/Additional Instructions: 1. Please call [facility] on next working day to make your blood pressure monitoring 2 weeks and post appointment in 6 weeks. 2. Please stay home until you come back to the clinic on first post-operative check up. 3. Please follow instructions on your medications CAREFULLY. 4. If you have abdominal incision, do not cover it unless dressing is necessary because of drainage. OK to shower, but avoid bath. Leave steri-strips until they fall off. If they are still on one week after surgery, you may remove them. 5. If you had vaginal surgery or vaginal repair, Dr. Diana may instruct you to take SITZ bath. 6. Yellow, blood tinged odorous vaginal discharge is usually normal after hysterectomy or vaginal surgeries. 7. No sexual intercourse, tampons, or douches until you are completely released from the post-operative care. 8. Avoid constipation by eating right and maybe using some Metamucil or Milk of Magnesia. 9. All prescription refills are given during the working hours. Please do no wait till it runs out. Call the clinic at [phone] before your medication runs out. The clinic will get in touch with your doctor to prescribe medications if necessary. 10. Please remain within 40 mile radius from our hospital because emergencies do happen now and then during the post-operative period. 11. If you have stairs at home, take one step at a time slowly and minimize the number of trips. It helps to stay in one floor for the next few days. No lifting except what you can lift by one hand until you are released from the post-operative care. 12. Driving is discouraged until you are well healed. It may be 3-4 weeks before you feel strong enough to drive. You should be able to turn and look through the rear window without pain and you should be able to push the brake pedal very hard without pain before you drive. No fast rules, but SAFETY should be your primary concern. DO NOT drive if you are on sedating medications such as narcotics. 13. Call the clinic (during working hours) to make urgent appointment or go to the Emergency room, if any of the following occurs: i. Vaginal bleeding becomes heavy, more than a period. ii. Incision becomes red and sore, or drains pus. iii. Your temperature is over 100.4 or you have chill. iv. IV site becomes red and swollen (a little ``knot?? is usually OK) v. Persistent nausea and vomiting vi. Persistent constipation or diarrhea vii. Rash or allergic reaction to medications. Discharge Attestations AIRFRAME TECHNICIAN Time Spent in Discharge Care*: greater than 30 min Coding Level of Care Code Acute Speaker Mounter for Chg Fwd Diagnoses Chronic hypertension with superimposed preeclampsia O11.9 delivery (maternal condition) O60.10X0
== END 2022-04-21 22:28 | disposition home or self-care (01) | DRG 806 ==
LOC: OPOB 13:55 → OBGYN 13:55
PROVIDERS: Admitting Provider Obstetrics & Gynecology; Visit Provider Obstetrics & Gynecology
DX: O11.4 Pre-existing hypertension with pre-eclampsia, complicating childbirth (principal); O36.0930 Maternal care for other rhesus isoimmunization, third trimester, not applicable or unspecified; Z37.0 Single live birth; Z3A.36 36 weeks gestation of pregnancy; Z79.82 Long term (current) use of aspirin; O75.89 Other specified complications of labor and delivery; O60.14X0 Preterm labor third trimester with preterm delivery third trimester, not applicable or unspecified
CPT/HCPCS: 36415; 51702; 59025; 59409; 80053; 80503; 83735; 84315; 84550; 85025; 85027; 85460; 86850; 86870; 86900; 90384; 96374; J2405; J3475; J3490; J7040; J7120; J7121

== ENCOUNTER → 2022-06-06 15:00 | Outpatient (BNVA) | payer MEDICAID, SELFPAY | PROVIDERS: Visit Provider Obstetrics & Gynecology | DX: Z97.5 Presence of (intrauterine) contraceptive device (principal); Z30.430 Encounter for insertion of intrauterine contraceptive device; Z39.2 Encounter for routine postpartum follow-up | CPT/HCPCS: 81025 ==